=== PATIENT | female | born 1995 | race African-American/Black ===

== ENCOUNTER → 2022-01-15 | Outpatient (CLI) | payer OTHER ==
[2022-01-15 13:18] LABS: BASO % 0.6 % (0.0-1.0); EOS # 0.1 10^3/uL (0.0-0.5); EOS % 1.6 % (0.0-3.0); HEMATOCRIT 40.7 % (36.0-47.0); HEMOGLOBIN 12.3 g/dl (12.0-15.5); LYMPH # 1.6 10^3/uL (1.5-5.0); LYMPH % 32.6 % (24.0-44.0); MEAN CORPUSCULAR HEMOGLOBIN 25.3 pg (27.0-33.0); MEAN CORPUSCULAR HGB CONC 30.2 g/dl (32.0-36.5); MEAN CORPUSCULAR VOLUME 83.6 fl (80.0-96.0); MONO # 0.4 10^3/uL (0.0-0.8); MONO % 7.6 % (2.0-8.0); NEUTROPHILS # 2.9 10^3/uL (1.5-8.5); NEUTROPHILS % 57.6 % (36.0-66.0); PLATELET COUNT, AUTOMATED 306 10^3/uL (150-450); RED BLOOD COUNT 4.87 10^6/uL (4.00-5.40)
[2022-01-15 14:42] LABS: ERYTHROCYTE SEDIMENTATION RATE 16 mm/hr (0-20)
[2022-01-18 12:09] LABS: BLOOD UREA NITROGEN 14 MG/DL (6-20)
[2022-01-18 12:12] LABS: CREATININE FOR GFR 0.82 MG/DL (0.57-1.00)
[2022-01-18 12:13] LABS: CHLORIDE LEVEL 101 mmol/L (96-106); POTASSIUM SERUM 4.1 mmol/L (3.5-5.2); SODIUM LEVEL 138 mmol/L (134-144)
[2022-01-18 12:15] LABS: CARBON DIOXIDE LEVEL 18 mmol/L (20-29)
[2022-01-18 12:20] LABS: ALT/SGPT 20 IU/L (0-32); CALCIUM LEVEL 9.6 MG/DL (8.7-10.2)
[2022-01-18 12:21] LABS: ALBUMIN 4.7 G/DL (3.9-5.0); BILIRUBIN,TOTAL < 0.2 MG/DL (0.0-1.2)
[2022-01-18 12:22] LABS: COMPLEMENT C3 168 MG/DL (82-167); COMPLEMENT C4 31 MG/DL (12-38); THYROXINE (T4) 6.5 MCG/DL (4.5-12.0)
[2022-01-18 12:23] LABS: TOTAL T3 113 NG/DL (71-180)
[2022-01-18 12:25] LABS: RHEUMATOID FACTOR QUANT < 10.0 IU/ML (<14.0)
[2022-01-18 12:27] LABS: GLUCOSE, FASTING 88 MG/DL (70-99)
== END ==
LOC: M WUC 08:57
PROVIDERS: ATTEND Allergy & Immunology Allergy
DX: T78.2XXA Anaphylactic shock, unspecified, initial encounter (principal); L50.1 Idiopathic urticaria